=== PATIENT | male | born 1980 | race Caucasian/White ===

== ENCOUNTER 2016-09-02 19:16 | Emergency (ER) | payer OTHER ==
[2016-09-02] MEDS ORDERED: NORCO 5/325 MG PO ONE (19:31)
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
[2016-09-02] MEDS ORDERED: NORCO 5/325 MG ONE (19:42)
[2016-09-02 22:23] VITALS: BP 110/68; PULSE 62; O2SAT 98
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
== END 2016-09-02 22:22 | disposition home or self-care (01) ==
LOC: ED 19:16
DX: S50.02XA Contusion of left elbow, initial encounter (principal); S70.02XA Contusion of left hip, initial encounter; S16.1XXA Strain of muscle, fascia and tendon at neck level, initial encounter; F32.9 Major depressive disorder, single episode, unspecified; F20.9 Schizophrenia, unspecified; V09.20XA Pedestrian injured in traffic accident involving unspecified motor vehicles, initial encounter
CPT/HCPCS: 72125; 72170; 73080; 73552; 87070; 87430; 99282; L0120

== ENCOUNTER 2017-05-09 17:10 | Emergency (ER) | payer OTHER ==
[2017-05-09] MEDS ORDERED: Sodium Chloride 0.9% 1000 ML 1,000 ML IV STA ×2 (17:28→19:21)
[2017-05-09] MEDS ORDERED: BABY ASPIRIN 81 MG CHEW PO ONE (17:28)
--- NOTE | 2017-05-09 17:35 | ERPHSYRPT ---
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 has been drinking well today. Triage Nursing Assessment: pt arrrived per pov, alert, resp slightly labored, skin w/d. pink. no edema, alert and oriented Physician History: This is a 36-year-old white male with history of schizophrenia and kidney stones. He arrives with complaint of a sudden onset of feeling dizzy headache nausea and anterior chest pain while working outside with temperature is 90 outside. Patient states that he was out mowing when this began he does state he feels short of breath. Pain is described as a tightness. Past medical history includes schizophrenia, kidney stones. Past surgical history includes kidney stones. Social history positive tobacco use. Timing/Duration: today (30 minutes prior to arrival) Activities at Onset: other (mowing outside in hot day) Quality: tightness Location: substernal Chest Pain Radiation: no radiation Severity of Pain-Max: moderate Severity of Pain-Current: moderate Modifying Factors: Improves With: nothing Associated Symptoms: nausea, headache, dizziness, No vomiting, No palpitations, No heartburn, No abdominal pain, No cough, No hurts to breathe, No diaphoresis, No chills, No fever, No fatigue, No weakness, No swelling/lump in chest, No syncope, No rash, No edema, No back pain Prior Chest Pain/Cardiac Workup: no prior chest pain Nitro Today/Relief: no nitro taken today Aspirin Treatment Today: no aspirin today Allergies/Adverse Reactions: No Known Drug Allergies Allergy (Verified 05/09/17 17:19) Home Medications: No Reportable Medications [No Reported Medications] 05/09/17 [History] Hx Tetanus, Diphtheria Vaccination/Date Given: No Hx Influenza Vaccination/Date Given: No Hx Pneumococcal Vaccination/Date Given: No Immunizations Up to Date: Yes - Review of Systems Constitutional: No Fever, No Chills Eyes: No Symptoms Ears, Nose, & Throat: No Symptoms Respiratory: Dyspnea, No Cough Cardiac: Chest Pain, No Edema, No Palpitations, No Syncope, No Orthopnea Abdominal/Gastrointestinal: Nausea, No Abdominal Pain, No Vomiting, No Diarrhea , No Constipation, No Hematemesis, No Hematochezia, No Melena, No Dysphagia, No Appetite Changes Genitourinary Symptoms: No Dysuria Musculoskeletal: No Back Pain, No Neck Pain Skin: No Rash Neurological: Dizziness, Headache, No Focal Weakness, No Gait Changes, No Irritability, No Lethargy, No Paralysis, No Parasthesia, No Seizure, No Sensory Changes, No Speech Changes, No Tics, No Tremors, No Vertigo Psychological: No Symptoms Endocrine: No Symptoms All Other Systems: Reviewed and Negative - Past Medical History Pertinent Past Medical History: No Neurological History: No Pertinent History ENT History: No Pertinent History Cardiac History: No Pertinent History Respiratory History: No Pertinent History Endocrine Medical History: No Pertinent History Musculoskeletal History: No Pertinent History GI Medical History: No Pertinent History History: No Pertinent History Psycho-Social History: Depression, Other Male Reproductive Disorders: No Pertinent History Other Medical History: KIDNEY STONE. SCITZOPHRANIA - Past Surgical History Past Surgical History: Yes Neuro Surgical History: No Pertinent History Cardiac: No Pertinent History Respiratory: No Pertinent History Gastrointestinal: No Pertinent History Genitourinary: No Pertinent History Musculoskeletal: No Pertinent History Male Surgical History: No Pertinent History Other Surgical History: kidney stone removal - Social History Smoking Status: Current every day smoker How long have you smoked: 15 YEARS Exposure to second hand smoke: Yes Drug Use: none Patient Lives Alone: No - Nursing Vital Signs Nursing Vital Signs: Initial Vital Signs Temperature 98.6 F 05/09/17 17:11 Pulse Rate 87 05/09/17 17:11 Respiratory Rate 16 05/09/17 17:11 Blood Pressure 144/80 05/09/17 17:11 O2 Sat by Pulse Oximetry 99 05/09/17 17:11 Pain Scale Pain Intensity 0 - Physical Exam General Appearance: mild distress Eye Exam: PERRL/EOMI, eyes nml inspection Ears, Nose, Throat Exam: normal ENT inspection, moist mucous membranes Neck Exam: normal inspection, non-tender, supple, full range of motion Respiratory Exam: normal breath sounds, lungs clear, No respiratory distress Cardiovascular Exam: regular rate/rhythm, normal heart sounds Gastrointestinal/Abdomen Exam: soft, No tenderness, No mass Back Exam: normal inspection, No CVA tenderness, No vertebral tenderness Extremity Exam: normal inspection, normal range of motion Neurologic Exam: alert, oriented x 3, cooperative, normal mood/affect, sensation nml, No motor deficits Skin Exam: normal color, warm, dry SpO2 Interpretation: normal (99%) SpO2: 99 Oxygen Delivery: Room Air - Course Nursing assessment & vital signs reviewed: Yes EKG Interpreted by Me: RATE (64 bp0m), Sinus Rhythm, Right Hildreth Deviation, Other (ekg:sinus rhythm, 64 bpm, right axis deviation, T wave inversion in leads 1 and avl ) - Radiology Exams Chest X-ray Interpretation: Interpreted by me, No Pneumonia, No Pneumothorax, Other ( no acute disease process noted) Ordered Tests: Active Orders 24 hr Category Date Time Status Opera Singer STAT Care 05/09/17 17:28 Active EKG-ER Only STAT Care 05/09/17 17:28 Active IV Insertion STAT Care 05/09/17 17:28 Active CHEST 1 VIEW (PORTABLE) Stat Exams 05/09/17 17:28 Taken CBC W DIFF Stat Lab 05/09/17 17:45 Completed CMP Stat Lab 05/09/17 17:45 Completed TROPONIN Q3H Lab 05/09/17 17:45 Completed TROPONIN Q3H Lab 05/09/17 20:09 Received TROPONIN Q3H Lab 05/09/17 23:30 Stop Req Medication Summary Discontinued Medications Generic Name Dose Route Start Last Admin Trade Name Mckenzie PRN Reason Stop Dose Admin Aspirin 324 mg 05/09/17 17:28 05/09/17 17:41 Baby Aspirin 81 Mg Chew PO 05/09/17 17:29 324 mg STAT ONE Administration Aspirin Confirm 05/09/17 17:36 Baby Aspirin 81 Mg Chew Administered 05/09/17 17:37 Dose 324 mg .ROUTE .STK-MED ONE Sodium Chloride 1,000 mls @ 999 mls/hr 05/09/17 17:28 05/09/17 17:41 Sodium Chloride 0.9% 1000 Ml IV 05/09/17 18:28 999 mls/hr .Q1H1M STA Administration Sodium Chloride Confirm 05/09/17 17:36 Sodium Chloride 0.9% 1000 Ml Administered 05/09/17 17:37 Dose 1,000 mls @ ud .ROUTE .STK-MED ONE Sodium Chloride Confirm 05/09/17 19:16 Sodium Chloride 0.9% 1000 Ml Administered 05/09/17 19:17 Dose 1,000 mls @ ud .ROUTE .STK-MED ONE Sodium Chloride 1,000 mls @ 999 mls/hr 05/09/17 19:21 05/09/17 19:22 Sodium Chloride 0.9% 1000 Ml IV 05/09/17 20:21 999 mls/hr .Q1H1M STA Administration Potassium Bicarbonate 50 meq 05/09/17 19:37 05/09/17 19:45 K-Lyte 25 Meq PO 05/09/17 19:38 50 meq STAT ONE Administration Potassium Bicarbonate Confirm 05/09/17 19:41 K-Lyte 25 Meq Administered 05/09/17 19:42 Dose 50 meq .ROUTE .STK-MED ONE Lab/Rad Data: Laboratory Result Diagrams 05/09/17 17:45 05/09/17 17:45 Laboratory Results 05/09/17 05/09/17 05/09/17 Range/Units 17:45 17:45 17:45 WBC 12.1 H (4.0-10.5) K/mm3 RBC 5.42 (4.1-5.6) M/mm3 Hgb 16.7 (12.5-18.0) gm/dl Hct 49.9 (42-50) % MCV 92.1 (78-100) fl MCH 30.8 (26-32) pg MCHC 33.5 (32-36) g/dl RDW 13.2 (11.5-14.0) % Plt Count 284 (150-450) K/mm3 MPV 10.0 H (6-9.5) fl Gran % 65.0 (36.0-66.0) % Lymphocytes % 26.4 (24.0-44.0) % Monocytes % 8.0 (0.0-12.0) % Eosinophils % 0.4 (0.00-5.0) % Basophils % 0.2 (0.0-0.4) % Basophils # 0.03 (0-0.4) Sodium 146 H (136-145) mEq/L Potassium 3.4 L (3.5-5.1) mEq/L Chloride 106 (98-107) mEq/L Carbon Dioxide 26.4 (21-32) mEq/L Anion Gap 16.6 H (5-15) MEQ/L BUN 10 (9-20) mg/dL Creatinine 1.04 (0.55-1.30) mg/dl Estimated GFR > 60 ML/MIN Glucose 91 (70-110) MG/DL Calcium 10.0 (8.5-10.1) mg/dL Total Bilirubin 0.40 (0.2-1.0) mg/dL AST 14 L (15-37) U/L ALT 27 (12-78) U/L Alkaline Phosphatase 84 (46-116) U/L Troponin I < 0.017 (0.000-0.056) ng/ml Serum Total Protein 8.1 (6.4-8.2) gm/dL Albumin 4.5 (3.4-5.0) g/dL - Progress Progress: improved Air Movement: fair Progress Note: 05/09/17 18:30 36-year-old white male arrives with complaint of sudden onset of chest pain anteriorly shortness breath nausea headache. Which occurred while mowing outside(it is over 90 outside) approximately 30 minutes prior to arrival. Patient does have an EKG which shows sinus rhythm 64 bpm there are inverted T waves in leads 1 and aVL. Patient's troponin is within normal limits patient received 1 L of normal saline iv and aspirin 324 mg orally . He is not feeling markedly better he has no more chest pain Will plan on repeat troponin. . 05/09/17 19:07 Patient is doing well awaiting repeat troponin case will be turned over to Dr. Arango due to shift change. The patient's case has been discussed with Dr. Arango. - Departure Clinical Impression: Heat exhaustion due to salt depletion, initial encounter, Hypokalemia due to inadequate potassium intake Condition: Stable Referrals: CYNDI HAM [Primary Care Provider] - Instructions: Heat Exhaustion and Heat Stroke Additional Instructions: Please follow the instructions given to you. Please take your medication as prescribed if given. If symptoms recur or get worse, come back to the emergency room if you cannot reach your primary care physician, or call your primary care physician for an appointment. Again if your symptoms get worse, come back to the emergency room. Thanks for visiting emergency room, and let us take care of you. <GRADY ARANGO - Last Filed: 05/09/17 20:33> - Progress Air Movement: good Progress Note: 05/09/17 19:38 Patient is doing much better. Denies any chest pain. Drinking water without any difficulty. One more extra liter of IV fluid given. We will order a troponin at 745. If it is negative. Plan to discharge him home. Counseled pt/family regarding: lab results, diagnosis, need for follow-up, rad results - Departure Time of Disposition: 20:33 Departure Disposition: Home Critical Care Time: Yes Critical Care Time(excluding separately billable procedures): 30-74 minutes
[2017-05-09] MEDS ORDERED: BABY ASPIRIN 81 MG CHEW ONE (17:36)
[2017-05-09] MEDS ORDERED: Sodium Chloride 0.9% 1000 ML 1,000 ML ONE ×2 (17:36→19:16)
[2017-05-09 17:59] LABS: BASOPHIL % 0.2 % (0.0-0.4); Eosinophil % 0.4 % (0.00-5.0); Lymphocytes % 26.4 % (24.0-44.0); Mean Cell Volume 92.1 fl (78-100); Mean Corpuscular Hemoglobin 30.8 pg (26-32); Platelet Count 284 K/mm3 (150-450); Red Blood Count 5.42 M/mm3 (4.1-5.6); Red Cell Distribution Width 13.2 % (11.5-14.0); White Blood Count 12.1 K/mm3 (4.0-10.5)
[2017-05-09 18:22] LABS: ALBUMIN 4.5 g/dL (3.4-5.0); ALKALINE PHOSPHATASE 84 U/L (46-116); ANION GAP 16.6 MEQ/L (5-15); BLOOD UREA NITROGEN 10 mg/dL (9-20); CHLORIDE 106 mEq/L (98-107); Carbon Dioxide 26.4 mEq/L (21-32); Glucose 91 MG/DL (70-110); Potassium 3.4 mEq/L (3.5-5.1); SGOT/AST 14 U/L (15-37); SGPT/ALT 27 U/L (12-78); SODIUM 146 mEq/L (136-145); Total Protein 8.1 gm/dL (6.4-8.2)
[2017-05-09] MEDS ORDERED: K-LYTE 25 MEQ PO ONE (19:37)
[2017-05-09] MEDS ORDERED: K-LYTE 25 MEQ ONE (19:41)
[2017-05-09 20:47] VITALS: BP 137/85; PULSE 62; O2SAT 96
--- NOTE | 2017-05-10 08:18 | XRAY ---
Indication: Chest and left arm pain. Comparison: None Portable chest demonstrates normal heart, lungs, and bony thorax.
== END 2017-05-09 20:50 | disposition home or self-care (01) ==
LOC: ED 17:10
DX: T67.4XXA Heat exhaustion due to salt depletion, initial encounter (principal); E87.6 Hypokalemia; R07.89 Other chest pain; R06.02 Shortness of breath; R11.2 Nausea with vomiting, unspecified; R51 Headache
CPT/HCPCS: 36000; 36415; 71010; 80053; 84484; 85025; 93005; 93041; 99284; A9270-GY

== ENCOUNTER 2018-09-24 08:59 | Emergency (ER) | payer OTHER ==
[2018-09-24 09:10] VITALS: BP 150/96; PULSE 102; O2SAT 98
[2018-09-24] MEDS ORDERED: TORAdol 30 mg Injection IM ONE (09:21)
--- NOTE | 2018-09-24 09:28 | ERPHSYRPT ---
- History of Present Illness Time Seen by Provider: 09/24/18 09:16 Source: patient Exam Limitations: no limitations Patient Subjective Stated Complaint: PT STATES "FRIDAY I WOKE UP AND IT HURT REAL BAD RIGHT BETWEEN MY SHOULDER BLADES AND IT COMES DOWN MY RIGHT ARM. I DON' T KNOW WHAT I DID" Triage Nursing Assessment: PINK/WARM/DRY, RESP EASY, A&OX4, STEADY GAIT, NO DEFORMITY NOTED. HAND RN SURGICAL STRONG/EQUAL AYALA Physician History: 37-year-old white male arrives with complaint of pain in his right base of his neck posteriorly radiating to the right arm symptoms since Friday 3 days ago. He states the pain is sharp severe worse with movement. He states he woke up with the above-noted pain. Patient states he saw Lien Berger she gave him oral steroids and a muscle relaxer but he states pain continues. He has not had any fevers no nausea no vomiting. Past medical history includes depression, kidney stones, schizophrenia, anxiety , depression. Past surgical history includes kidney stones Social history positive for tobacco use occasional alcohol use denies illicit drug use. Timing/Duration: day(s) (3 days) Severity: moderate Modifying Factors: Improves With: medication (patient states he is on oral steroids and muscle relaxants for 2 days), movement Associated Symptoms: No nausea, No vomiting, No abdominal pain, No shortness of breath, No heartburn, No diaphoresis, No cough, No chills, No chest pain, No fever, No headaches, No loss of appetite, No malaise, No syncope, No seizure, No weakness Allergies/Adverse Reactions: No Known Drug Allergies Allergy (Verified 05/09/17 17:19) Hx Tetanus, Diphtheria Vaccination/Date Given: Yes Hx Influenza Vaccination/Date Given: No Hx Pneumococcal Vaccination/Date Given: No Immunizations Up to Date: Yes - Review of Systems Constitutional: No Fever, No Chills Eyes: No Symptoms Ears, Nose, & Throat: No Symptoms Respiratory: No Cough, No Dyspnea Cardiac: No Chest Pain, No Edema, No Syncope Abdominal/Gastrointestinal: No Abdominal Pain, No Nausea, No Vomiting, No Diarrhea Genitourinary Symptoms: No Dysuria Musculoskeletal: Arthralgias, Neck Pain (pain base of neck posteriorly radiating to right arm 2 days), No Back Pain, No Deformity, No Fall, No Injury , No Joint Redness, No Joint Pain, No Joint Swelling, No Myalgias Skin: No Rash Neurological: No Dizziness, No Focal Weakness, No Sensory Changes Psychological: No Symptoms Endocrine: No Symptoms All Other Systems: Reviewed and Negative - Past Medical History Pertinent Past Medical History: No Neurological History: No Pertinent History ENT History: No Pertinent History Cardiac History: No Pertinent History Respiratory History: No Pertinent History Endocrine Medical History: No Pertinent History Musculoskeletal History: Arthritis GI Medical History: No Pertinent History History: No Pertinent History Psycho-Social History: Depression, Other Male Reproductive Disorders: No Pertinent History Other Medical History: KIDNEY STONE. SCHIZOPHRENIA - Past Surgical History Past Surgical History: Yes Neuro Surgical History: No Pertinent History Cardiac: No Pertinent History Respiratory: No Pertinent History Gastrointestinal: No Pertinent History Genitourinary: No Pertinent History Musculoskeletal: No Pertinent History Male Surgical History: No Pertinent History Other Surgical History: LITHOTRIPSY - Social History Smoking Status: Current every day smoker How long have you smoked: 17 YEARS Exposure to second hand smoke: Yes Drug Use: none Patient Lives Alone: Yes - Nursing Vital Signs Nursing Vital Signs: Initial Vital Signs Temperature 98.2 F 09/24/18 09:02 Pulse Rate 102 H 09/24/18 09:02 Respiratory Rate 14 09/24/18 09:02 Blood Pressure 150/96 09/24/18 09:02 O2 Sat by Pulse Oximetry 98 09/24/18 09:02 Pain Scale Pain Intensity [] 10 Pain Intensity 7 - Physical Exam General Appearance: mild distress Eye Exam: PERRL/EOMI, eyes nml inspection Ears, Nose, Throat Exam: normal ENT inspection, TMs normal, pharynx normal, moist mucous membranes Neck Exam: full range of motion, other (patient with pain base of neck posteriorly with palpation moving neck spontaneously without distress) Respiratory Exam: No normal breath sounds Cardiovascular Exam: regular rate/rhythm, capillary refill <2 sec Gastrointestinal/Abdomen Exam: soft, normal bowel sounds, No tenderness, No mass Back Exam: normal inspection, normal range of motion, No CVA tenderness, No vertebral tenderness Extremity Exam: normal inspection (this and attic. When I was), normal range of motion, pelvis stable Neurologic Exam: alert, oriented x 3, cooperative, child development consultant II-XII nml as tested, normal mood/affect, nml cerebellar function, nml station & gait, sensation nml, No motor deficits Skin Exam: normal color, warm, dry, No rash Lymphatic Exam: No adenopathy SpO2 Interpretation: normal (98%) SpO2: 98 - Course Nursing assessment & vital signs reviewed: Yes - Radiology Exams C-Spine X-ray Interpretation: Discussed w/ radiologist (x-ray cervical spine: Impression : Unchanged three-view of the cervical spine demonstrating minimal C5-C7 endplate spurring, and minimal C5-C6 disc space narrowing. No new or acute findings..) Ordered Tests: Active Orders 24 hr Category Date Time Status CERVICAL SPINE (2 OR 3 VIEW) Stat Exams 09/24/18 09:21 Completed Medication Summary Discontinued Medications Generic Name Dose Route Start Last Admin Trade Name Mckenzie PRN Reason Stop Dose Admin Ketorolac Tromethamine 60 mg 09/24/18 09:21 09/24/18 09:32 Toradol 30 Mg Injection IM 09/24/18 09:22 60 mg STAT ONE Administration Ketorolac Tromethamine Confirm 09/24/18 09:30 Toradol 30 Mg Injection Administered 09/24/18 09:31 Dose 60 mg .ROUTE [facility] - Progress Progress: improved Progress Note: 09/24/18 09:47 X-ray of the patient's cervical spine is unchanged from September 04, 2017 demonstrating cervical lordotic straightening, minimal C5-C7 endplate spurring, and minimal C5-C6 disc space narrowing. There are no new or acute findings. Patient has full range of motion to his upper extremities sensation intact upper extremities. Will go ahead and have patient continue this oral steroids as well as muscle relaxers prescribed by Lien Berger. Will go ahead and write for a limited amount of [place] for the patient's pain. He states he does not need a work slip. He denies any history of substance abuse or narcotic dependency. Inspect has been queried no recent narcotic prescriptions. - Departure Time of Disposition: 09:49 Departure Disposition: Home Clinical Impression: Neck pain Cervical strain Qualifiers: Encounter type: initial encounter Qualified Code(s): S16.1XXA - Strain of muscle, fascia and tendon at neck level, initial encounter Condition: Fair Critical Care Time: No Referrals: CYNDI BERGER [Primary Care Provider] - Additional Instructions: Return home. Continue muscle relaxers and oral steroids as prescribed by Lien Berger. [place] 5/325 one orally every 4 hours as needed for pain. Follow-up with your family doctor if symptoms are worse, no better in 48 hours, or persist longer than one week. Return for acute distress or for severe symptoms. Prescriptions: Hydrocodone/APAP 5-325 Tab^^^ [[place] 5-325 Tablet^^^] 1 tab PO Q4HPRN PRN #10 tablet MDD 6 PRN Reason: Pain
[2018-09-24] MEDS ORDERED: TORAdol 30 mg Injection ONE (09:30)
--- NOTE | 2018-09-24 09:44 | XRAY ---
Indication: Neck pain. No known injury. Comparison: September 04, 2017. 3 views of the cervical spine unchanged again demonstrating cervical lordotic straightening, minimal C5-C7 endplate spurring, and minimal C5-C6 disc space narrowing. No new/acute findings.
== END 2018-09-24 10:06 | disposition home or self-care (01) ==
LOC: ED 08:59
DX: M54.2 Cervicalgia (principal); S16.1XXA Strain of muscle, fascia and tendon at neck level, initial encounter; F32.9 Major depressive disorder, single episode, unspecified; Z87.442 Personal history of urinary calculi; F20.9 Schizophrenia, unspecified; F41.9 Anxiety disorder, unspecified
CPT/HCPCS: 72040; 96372; 99283; J1885

== ENCOUNTER 2018-12-16 22:03 | Emergency (ER) | payer OTHER ==
--- NOTE | 2018-12-16 22:21 | ERPHSYRPT ---
- History of Present Illness Time Seen by Provider: 12/16/18 22:20 Source: patient Exam Limitations: no limitations Patient Subjective Stated Complaint: fell in hole that dog had dug, pt rolled rt ankle and heard a pop. Triage Nursing Assessment: lungs clear, heart tones reg, no distress noted. Abd soft with active bs x4 quad. Rt lateral ankle is edematous. PPP. Ice pack applied to rt ankle. Physician History: 38 y/o white male tripped in a hole in the yard prior to mowing and injured right ankle. pt kept mowing but pain not improved. Method of Injury: twisted Occurred: this evening Severity of Pain-Max: moderate Severity of Pain-Current: mild Lower Extremities Pain: ankle: right Modifying Factors: Improves With: movement Associated Symptoms: popping sensation Allergies/Adverse Reactions: No Known Drug Allergies Allergy (Verified 05/09/17 17:19) Hx Tetanus, Diphtheria Vaccination/Date Given: Yes Hx Influenza Vaccination/Date Given: No Hx Pneumococcal Vaccination/Date Given: No Immunizations Up to Date: Yes - Review of Systems Constitutional: No Symptoms Eyes: No Symptoms Ears, Nose, & Throat: No Symptoms Respiratory: No Symptoms Cardiac: No Symptoms Abdominal/Gastrointestinal: No Symptoms Genitourinary Symptoms: No Symptoms Musculoskeletal: Injury (right ankle), Joint Pain (right ankle) Skin: No Symptoms Neurological: No Symptoms Psychological: No Symptoms Endocrine: No Symptoms Hematologic/Lymphatic: No Symptoms Immunological/Allergic: No Symptoms All Other Systems: Reviewed and Negative - Past Medical History Pertinent Past Medical History: No Neurological History: No Pertinent History ENT History: No Pertinent History Cardiac History: No Pertinent History Respiratory History: No Pertinent History Endocrine Medical History: No Pertinent History Musculoskeletal History: Arthritis GI Medical History: GERD History: Other Psycho-Social History: Depression, Other Male Reproductive Disorders: No Pertinent History Other Medical History: KIDNEY STONE. SCHIZOPHRENIA. spurs behind rt shoulder - Past Surgical History Past Surgical History: Yes Neuro Surgical History: No Pertinent History Cardiac: No Pertinent History Respiratory: No Pertinent History Gastrointestinal: No Pertinent History Genitourinary: No Pertinent History Musculoskeletal: No Pertinent History Male Surgical History: No Pertinent History Other Surgical History: LITHOTRIPSY - Social History Smoking Status: Current every day smoker How long have you smoked: 17 YEARS Exposure to second hand smoke: Yes Drug Use: none Patient Lives Alone: No - Nursing Vital Signs Nursing Vital Signs: Initial Vital Signs Temperature 98.6 F 12/16/18 22:22 Pulse Rate 108 H 12/16/18 22:22 Respiratory Rate 16 12/16/18 22:22 Blood Pressure 144/96 12/16/18 22:22 O2 Sat by Pulse Oximetry 98 12/16/18 22:22 Pain Scale Pain Intensity 6 - Physical Exam General Appearance: no apparent distress, alert, anxiety Eyes, Ears, Nose, Throat Exam: normal ENT inspection, moist mucous membranes Neck Exam: normal inspection, non-tender, supple, full range of motion Cardiovascular/Respiratory Exam: chest non-tender Gastrointestinal/Abdominal Exam: non-tender Back Exam: normal inspection, normal range of motion, No CVA tenderness, No vertebral tenderness Hips Exam: bilateral: non-tender, normal inspection, normal range of motion, no evidence of injury Legs Exam: bilateral leg: non-tender, normal inspection, normal range of motion , no evidence of injury Knees Exam: bilateral knee: non-tender, normal inspection, normal range of motion Ankle Exam: right ankle: limited range of motion, soft tissue tenderness, swelling, left ankle: non-tender, normal inspection, normal range of motion, no evidence of injury Foot Exam: bilateral foot: non-tender, normal inspection, normal range of motion , no evidence of injury Neuro/Tendon Exam: normal sensation, normal motor functions, normal tendon functions, responds to pain Mental Status Exam: alert, oriented x 3, cooperative Skin Exam: normal color, warm, dry SpO2 Interpretation: normal O2 Delivery: Room Air - Course Nursing assessment & vital signs reviewed: Yes Ordered Tests: Active Orders 24 hr Category Date Time Status ANKLE (3 VIEWS) Stat Exams 12/16/18 22:21 Taken - Progress Progress: unchanged, pain not gone completely, re-examined Progress Note: 12/16/18 22:56 xray right ankle-no acute fx or dislocation Counseled pt/family regarding: diagnosis, need for follow-up, rad results - Departure Departure Disposition: Home Clinical Impression: Right ankle sprain Condition: Stable Critical Care Time: No Additional Instructions: ice pack 3 times daily for 2 days. tylenol and ibuprofen for pain. follow up with primary doctor for persistent pain.
[2018-12-16 22:24] VITALS: BP 144/96; PULSE 108; O2SAT 98
[2018-12-16] MEDS ORDERED: PERCOCET TABLET 5/325MG ONE (23:05)
[2018-12-16] MEDS: PERCOCET TABLET 5/325MG PO STA (23:17)
--- NOTE | 2018-12-17 09:04 | XRAY ---
Indication: Pain following twisting injury. Comparison: None 3 views of the right ankle demonstrates tiny posterior heel spur. No other bony, articular, or soft tissue abnormalities.
== END 2018-12-16 23:22 | disposition home or self-care (01) ==
LOC: ED 22:03
DX: S93.401A Sprain of unspecified ligament of right ankle, initial encounter (principal); W17.2XXA Fall into hole, initial encounter; Y93.01 Activity, walking, marching and hiking
CPT/HCPCS: 73610; 99283; A9270-GY

== ENCOUNTER 2019-03-23 09:34 | Emergency (ER) | payer OTHER ==
[2019-03-23] MEDS ORDERED: TORAdol 30 mg Injection IV ONE (10:06)
[2019-03-23] MEDS ORDERED: Zofran 4 MG/2 ML VIAL IV ONE (10:06)
[2019-03-23] MEDS ORDERED: Sodium Chloride 0.9% 1000 ML 1,000 ML IV STA (10:06)
[2019-03-23] MEDS ORDERED: Sodium Chloride 0.9% 1000 ML 1,000 ML ONE (10:15)
[2019-03-23] MEDS ORDERED: TORAdol 30 mg Injection ONE (10:15)
[2019-03-23] MEDS ORDERED: Zofran 4 MG/2 ML VIAL ONE (10:15)
--- NOTE | 2019-03-23 10:19 | ERPHSYRPT ---
- History of Present Illness Time Seen by Provider: 03/23/19 10:11 Source: patient Exam Limitations: no limitations Patient Subjective Stated Complaint: Pt states "I am having horrible abdominal pain. It started in my right back area and now it is in my lower abdomen. It feels like another kidney stone." Triage Nursing Assessment: Pt presnted through the front and placed in room 5. Pt alert and oriented X 3, skin pwd Pt ambulates with a hunched over gait, able to speak in clear full senteneces. Physician History: I think this is a kidney stone - on the right side. Last time was 2 years ago and needed lithotripsy. I have diarrhea also, Allergies/Adverse Reactions: No Known Drug Allergies Allergy (Verified 05/09/17 17:19) Hx Tetanus, Diphtheria Vaccination/Date Given: No Hx Influenza Vaccination/Date Given: No Hx Pneumococcal Vaccination/Date Given: No Immunizations Up to Date: Yes - Past Medical History Pertinent Past Medical History: No Neurological History: No Pertinent History ENT History: No Pertinent History Cardiac History: No Pertinent History Respiratory History: No Pertinent History Endocrine Medical History: No Pertinent History Musculoskeletal History: Arthritis GI Medical History: GERD History: Other Psycho-Social History: Depression, Other Male Reproductive Disorders: No Pertinent History Other Medical History: KIDNEY STONE. SCHIZOPHRENIA. spurs behind rt shoulder - Past Surgical History Past Surgical History: Yes Neuro Surgical History: No Pertinent History Cardiac: No Pertinent History Respiratory: No Pertinent History Gastrointestinal: No Pertinent History Genitourinary: No Pertinent History Musculoskeletal: No Pertinent History Male Surgical History: No Pertinent History Other Surgical History: LITHOTRIPSY - Social History Smoking Status: Current every day smoker How long have you smoked: years Exposure to second hand smoke: Yes Drug Use: none Patient Lives Alone: No - Review of Systems Constitutional: No Symptoms Respiratory: No Symptoms Cardiac: No Symptoms Abdominal/Gastrointestinal: Nausea, Other (R flank pain moving to RLQ) All Other Systems: Reviewed and Negative - Nursing Vital Signs Nursing Vital Signs: Initial Vital Signs Temperature 98.3 F 03/23/19 09:51 Pulse Rate 52 L 03/23/19 09:51 Respiratory Rate 22 03/23/19 09:51 Blood Pressure 138/88 03/23/19 09:51 O2 Sat by Pulse Oximetry 100 03/23/19 09:51 Pain Scale Pain Intensity 4 - Physical Exam General Appearance: mild distress (Cramping pain momentarily following abdominal palpation) Eye Exam: PERRL/EOMI Ears, Nose, Throat Exam: normal ENT inspection Respiratory Exam: normal breath sounds, chest tenderness, lungs clear Cardiovascular Exam: regular rate/rhythm, normal heart sounds, normal peripheral pulses Gastrointestinal/Abdomen Exam: soft, normal bowel sounds, No tenderness (none noted with palpation) Extremity Exam: normal inspection Neurologic Exam: alert, oriented x 3, cooperative, normal mood/affect SpO2 Interpretation: normal SpO2: 100 O2 Delivery: Room Air - Course Nursing assessment & vital signs reviewed: Yes Ordered Tests: Active Orders 24 hr Category Date Time Status CBC W DIFF Stat Lab 03/23/19 10:25 Completed CMP Stat Lab 03/23/19 10:25 Completed UA W/MICROSCOPY [Urinalysis with Microscopy] Stat Lab 03/23/19 11:02 Ordered UA W/RFX UR CULTURE Stat Lab 03/23/19 10:25 Completed Medication Summary Discontinued Medications Generic Name Dose Route Start Last Admin Trade Name Freq PRN Reason Stop Dose Admin Sodium Chloride 1,000 mls @ 999 mls/hr 03/23/19 10:06 03/23/19 11:56 Sodium Chloride 0.9% 1000 Ml IV 03/23/19 11:06 Infused .Q1H1M STA Infusion Sodium Chloride Confirm 03/23/19 10:15 Sodium Chloride 0.9% 1000 Ml Administered 03/23/19 10:16 Dose 1,000 mls @ ud .ROUTE .STK-MED ONE Ketorolac Tromethamine 30 mg 03/23/19 10:06 03/23/19 10:16 Toradol 30 Mg Injection IV 03/23/19 10:07 30 mg STAT ONE Administration Ketorolac Tromethamine Confirm 03/23/19 10:15 Toradol 30 Mg Injection Administered 03/23/19 10:16 Dose 30 mg .ROUTE .STK-MED ONE Ondansetron HCl 4 mg 03/23/19 10:06 03/23/19 10:16 Zofran 4 Mg/2 Ml Vial IV 03/23/19 10:07 4 mg STAT ONE Administration Ondansetron HCl Confirm 03/23/19 10:15 Zofran 4 Mg/2 Ml Vial Administered 03/23/19 10:16 Dose 4 mg .ROUTE .STK-MED ONE Lab/Rad Data: Laboratory Result Diagrams 03/23/19 10:25 03/23/19 10:25 Laboratory Results 03/23/19 03/23/19 03/23/19 Range/Units 10:25 10:25 10:25 WBC 8.2 (4.0-10.5) K/mm3 RBC 5.04 (4.1-5.6) M/mm3 Hgb 15.8 (12.5-18.0) gm/dl Hct 47.5 (42-50) % MCV 94.2 (78-100) fl MCH 31.3 (26-32) pg MCHC 33.3 (32-36) g/dl RDW 13.2 (11.5-14.0) % Plt Count 237 (150-450) K/mm3 MPV 9.8 H (6-9.5) fl Gran % 59.3 (36.0-66.0) % Eos # (Auto) 0.05 (0-0.5) Absolute Lymphs (auto) 1.84 (1.0-4.6) Absolute Monos (auto) 1.42 H (0.0-1.3) Lymphocytes % 22.4 L (24.0-44.0) % Monocytes % 17.3 H (0.0-12.0) % Eosinophils % 0.6 (0.00-5.0) % Basophils % 0.4 (0.0-0.4) % Absolute Granulocytes 4.86 (1.4-6.9) Basophils # 0.03 (0-0.4) Sodium 143 (137-145) mmol/L Potassium 3.6 (3.5-5.1) mmol/L Chloride 106 (98-107) mmol/L Carbon Dioxide 27 (22-30) mmol/L Anion Gap 13.2 (5-15) MEQ/L BUN 8 L (9-20) mg/dL Creatinine 0.81 (0.66-1.25) mg/dL Estimated GFR > 60.0 ML/MIN Glucose 105 (74-106) mg/dL Calcium 9.3 (8.4-10.2) mg/dL Total Bilirubin 0.30 (0.2-1.3) mg/dL AST 21 (17-59) U/L ALT 19 (0-50) U/L Alkaline Phosphatase 70 (38-126) U/L Serum Total Protein 7.9 (6.3-8.2) g/dL Albumin 4.5 (3.5-5.0) g/dL Urine Color YELLOW (YELLOW) Urine Appearance CLEAR (CLEAR) Urine pH 6.0 (5-6) Ur Specific [place] 1.017 (1.005-1.025) Urine Protein NEGATIVE (Negative) Urine Ketones NEGATIVE (NEGATIVE) Urine Blood NEGATIVE (0-5) [place] Urine Nitrite NEGATIVE (NEGATIVE) Urine Bilirubin NEGATIVE (NEGATIVE) Urine Urobilinogen NEGATIVE (0-1) mg/dL Ur Leukocyte Esterase NEGATIVE (NEGATIVE) Urine WBC (Auto) 0-2 (0-5) /HPF Urine RBC (Auto) 0-2 (0-2) /HPF U Epithel Cells (Auto) NONE (FEW) /HPF Urine Bacteria (Auto) NONE (NEGATIVE) /HPF Urine Mucus (Auto) MODERATE (NEGATIVE) /HPF Urine Culture Reflexed NO (NO) Urine Glucose NEGATIVE (NEGATIVE) mg/dL - Progress Progress: improved Progress Note: 03/23/19 12:20 No pain/nausea since IV and zofran and my initial exam. Educated at length re UA not suggestve of stone movement - blood work not suggestive of an acute bacterial infectious process. Believe safe to go home; RX for pain and nausez - can fill if needed. If GI sx only (has diarrhea) no further TX indicated except keep well hydrated - same as for presumptive stone picture. - Departure Departure Disposition: Home Clinical Impression: Gastroenteritis Condition: Stable Critical Care Time: No Referrals: DOCTOR,NO FAMILY [Primary Care Provider] - Additional Instructions: Keep well hydrated - same plan if a stone is causing the pain or is Gastroenteritis (diarrhea) is causing the abdominal pain. Fill RX if needed for pain and nausea control. Follow up with primary care as needed. Prescriptions: Hydrocodone Bit/Acetaminophen [[place] 7.5-325 Tablet] 1 each PO Q6H PRN PRN #14 tablet PRN Reason: Mild To Moderate Pain Ondansetron ODT 4 MG [Zofran Odt 4 mg] 4 mg PO Q6H PRN PRN #10 tab.rapdis PRN Reason: Nausea/Vomiting
[2019-03-23 10:36] LABS: BASOPHIL % 0.4 % (0.0-0.4); Basophil (Absolute #) 0.03 (0-0.4); Eosinophil % 0.6 % (0.00-5.0); Eosinophil (Absolute #) 0.05 (0-0.5); Granulocyte Absolute (ANC) 4.86 (1.4-6.9); Granulocytes % 59.3 % (36.0-66.0); Hematocrit 47.5 % (42-50); Hemoglobin 15.8 gm/dl (12.5-18.0); Lymphocyte (Absolute #) 1.84 (1.0-4.6); Lymphocytes % 22.4 % (24.0-44.0); Mean Cell Volume 94.2 fl (78-100); Mean Corpuscular Hemoglobin 31.3 pg (26-32); Mean Corpuscular Hgb Concent. 33.3 g/dl (32-36); Mean Platelet Volume 9.8 fl (6-9.5); Monocyte (Absolute #) 1.42 (0.0-1.3); Monocytes % 17.3 % (0.0-12.0); Platelet Count 237 K/mm3 (150-450); Red Blood Count 5.04 M/mm3 (4.1-5.6); Red Cell Distribution Width 13.2 % (11.5-14.0); White Blood Count 8.2 K/mm3 (4.0-10.5)
[2019-03-23 10:39] LABS: Appearance CLEAR (CLEAR); Bilirubin NEGATIVE (NEGATIVE); Blood NEGATIVE Ery/ul (0-5); Glucose NEGATIVE (NEGATIVE); Ketones NEGATIVE (NEGATIVE); Leukocyte Esterase NEGATIVE (NEGATIVE); Mucus MODERATE /HPF (NEGATIVE); Nitrite NEGATIVE (NEGATIVE); Protein,Urine Dip NEGATIVE (Negative); RBC 0-2 /HPF (0-2); Specific Gravity 1.017 (1.005-1.025); Urobilinogen NEGATIVE mg/dL (0-1); WBC 0-2 /HPF (0-5)
[2019-03-23 10:50] LABS: ALBUMIN 4.5 g/dL (3.5-5.0); ALKALINE PHOSPHATASE 70 U/L (38-126); ANION GAP 13.2 MEQ/L (5-15); BLOOD UREA NITROGEN 8 mg/dL (9-20); CHLORIDE 106 mmol/L (98-107); Calcium 9.3 mg/dL (8.4-10.2); Carbon Dioxide 27 mmol/L (22-30); Creatinine 1 0.81 mg/dL (0.66-1.25); Glucose 105 mg/dL (74-106); Potassium 3.6 mmol/L (3.5-5.1); SGOT/AST 21 U/L (17-59); SGPT/ALT 19 U/L (0-50); SODIUM 143 mmol/L (137-145); Total Protein 7.9 g/dL (6.3-8.2)
[2019-03-23 12:21] VITALS: BP 113/69; PULSE 49
[2019-03-23 12:26] VITALS: O2SAT 100
== END 2019-03-23 12:45 | disposition home or self-care (01) ==
LOC: ED 09:34
DX: K52.9 Noninfective gastroenteritis and colitis, unspecified (principal)
CPT/HCPCS: 36000; 36415; 80053; 81001; 85025; 96360; 96374; 96375; 99284; J1885; J2405

== ENCOUNTER 2023-01-11 22:29 | Emergency (ER) | payer OTHER ==
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
[2023-01-11] MEDS ORDERED: Sodium Chloride 0.9% 1000 ML 1,000 ML ONE (22:42)
[2023-01-11] MEDS ORDERED: Sodium Chloride 0.9% 1000 ML 1,000 ML IV SCH (22:45)
[2023-01-11 22:58] LABS: BASOPHIL % 0.7 % (0.0-0.4); Basophil (Absolute #) 0.06 x10^3/uL (0-0.4); Eosinophil % 1.3 % (0.00-5.0); Eosinophil (Absolute #) 0.11 x10^3/uL (0-0.5); Hematocrit 45.5 % (42-50); IMMATURE GRAN # 0.03 x10^3u/L (0.00-0.03); IMMATURE GRAN % 0.4 % (0.00-0.4); Lymphocytes % 37.9 % (24.0-44.0); Mean Cell Volume 94.8 fL (78-100); Mean Corpuscular Hemoglobin 31.3 pg (26-32); Mean Platelet Volume 8.9 fL (7.5-11.0); Monocyte (Absolute #) 0.75 x10^3/uL (0.0-1.3); Monocytes % 8.9 % (0.0-12.0); Neutrophil % 50.8 % (36.0-66.0); Platelet Count 256 x10^3/uL (150-450); Red Cell Distribution Width 12.8 % (11.5-14.0); White Blood Count 8.5 x10^3/uL (4.0-10.5)
[2023-01-11 23:12] LABS: ALBUMIN 4.1 g/dL (3.5-5.0); ALKALINE PHOSPHATASE 84 U/L (38-126); ANION GAP 12.6 MEQ/L (5-15); BLOOD UREA NITROGEN 13 mg/dL (9-20); CHLORIDE 104 mmol/L (98-107); Calcium 9.1 mg/dL (8.4-10.2); Carbon Dioxide 29 mmol/L (22-30); Creatinine 1 1.06 mg/dL (0.66-1.25); EST GLOMERULAR FILTRATION RATE > 60.0 ML/MIN; ETHYL ALCOHOL < 10 mg/dL (0-10); Glucose 145 mg/dL (74-106); LIPASE 64 U/L (23-300); SGOT/AST 28 U/L (17-59); SGPT/ALT 27 U/L (0-50); SODIUM 142 mmol/L (137-145)
--- NOTE | 2023-01-11 23:14 | XRAY ---
CLINICAL HISTORY:Stroke protocol. CVA symptoms. numbness in hands & face; COMPARISON:None; TECHNIQUES:Axial non-contrast CT scan of the brain was performed from the skull base to the high parietal region. CTDI: 53.92 mGy, DLP: 1016.25 mGy*cm; FINDINGS: No intracerebral or extra axial hematoma. No evidence of infarction in this CT. The visualized brain parenchyma shows a normal appearance. No focal parenchymal abnormalities are demonstrated. Noe-white matter differentiation is maintained. No midline shifts or deformity. Normal size and configuration of the cerebral ventricles. Normal CT appearance of the posterior fossa structures namely the cerebellar hemispheres, brainstem and cerebellar peduncles. There is a small CSF area at midline of posterior fossa, measuring 1.5 x 1.6 x 1.2 cm, suggestive of arachnoid cyst. The IACs are unremarkable. The cerebellum-pontine angles are clear. The pituitary gland, the pineal gland, the optic chiasm is unremarkable. The osseous structures in the skull base are unremarkable. No definite calvarium fractures. Scanned paranasal sinuses are clear. No abnormal contrast enhancement seen. IMPRESSION: No evident intracerebral or extra axial hematoma, and no evident infarction in this CT. Small arachnoid cyst in posterior fossa. Unremarkable non-enhanced CT study for the brain. Electronically Signed by: Kayla lEena MD. (01/11/2023 22:08:36 [employer])
[2023-01-11 23:57] LABS: Appearance Cloudy (Clear); Bacteria None Seen /HPF (None Seen); Bilirubin Negative (Negative); Blood Negative (Negative); Epithelial Cells None Seen /HPF (None Seen); Glucose, Urine Negative (Negative); Hyaline Casts NONE SEEN /LPF (0-2); Ketones Negative (Negative); Leukocyte Esterase Negative (Negative); Nitrite Negative (Negative); Ph 7.5 (4.6-8.0); Protein,Urine Dip Negative (Negative); RBC 0-2 /HPF (0-5); Specific Gravity 1.015 (1.005-1.030); Urobilinogen 0.2 mg/dL (0.2); WBC 0-2 /HPF (0-5)
[2023-01-11 23:59] LABS: ADD URINE CULTURE? NO (NO)
[2023-01-12] MEDS: BABY ASPIRIN 81 MG CHEW PO ONE ×2 (00:57→01:00)
[2023-01-12 02:33] VITALS: O2SAT 96
[2023-01-12 03:33] LABS: T4 (Thyroxine) 5.97 ug/dL (5.53-10.96); TSH, 3RD Generation 1.39 mIU/L (0.47-4.68)
[2023-01-12 04:04] VITALS: BP 127/77; PULSE 48
== END 2023-01-12 04:15 | disposition home or self-care (01) ==
LOC: ED 22:29
DX: G93.0 Cerebral cysts (principal); R07.9 Chest pain, unspecified; R20.2 Paresthesia of skin; Z72.0 Tobacco use
CPT/HCPCS: 36000; 36415; 70450; 80053; 81001; 82077; 83605; 83690; 83735; 84436; 84443; 84484; 85025; 93005; 94760; 96360; 96361; 99284; A9270-GY

== ENCOUNTER 2023-12-11 16:18 | Emergency (ER) | payer BC, OTHER ==
[2023-12-11 16:28] VITALS: TEMP 98
[2023-12-11 16:44] LABS: BASOPHIL % 0.4 % (0.0-0.4); Basophil (Absolute #) 0.04 x10^3/uL (0-0.4); Eosinophil % 0.3 % (0.00-5.0); Eosinophil (Absolute #) 0.03 x10^3/uL (0-0.5); Hematocrit 45.5 % (42-50); Hemoglobin 15.4 g/dL (12.5-18.0); IMMATURE GRAN # 0.04 x10^3u/L (0.00-0.03); IMMATURE GRAN % 0.4 % (0.00-0.4); Lymphocyte (Absolute #) 2.21 x10^3/uL (1.0-4.6); Lymphocytes % 20.1 % (24.0-44.0); Mean Cell Volume 92.9 fL (78-100); Mean Corpuscular Hemoglobin 31.4 pg (26-32); Mean Corpuscular Hgb Concent. 33.8 g/dL (32-36); Mean Platelet Volume 9.4 fL (7.5-11.0); Monocyte (Absolute #) 0.96 x10^3/uL (0.0-1.3); Monocytes % 8.7 % (0.0-12.0); Neutrophil % 70.1 % (36.0-66.0); Platelet Count 242 x10^3/uL (150-450); Red Cell Distribution Width 12.6 % (11.5-14.0)
[2023-12-11 16:53] LABS: Erythrocyte Sedimentation Rate 4 mm/hr (0-15)
[2023-12-11 16:57] LABS: ALBUMIN 4.6 g/dL (3.5-5.0); ANION GAP 11.9 MEQ/L (5-15); BILIRUBIN,TOTAL 0.6 mg/dL (0.2-1.3); Calcium 9.5 mg/dL (8.4-10.2); Creatinine 1 0.97 mg/dL (0.66-1.25); EST GLOMERULAR FILTRATION RATE 100.6 ML/MIN; MAGNESIUM 1.9 mg/dL (1.6-2.3); Potassium 3.5 mmol/L (3.5-5.1); Total Protein 7.7 g/dL (6.3-8.2)
[2023-12-11 17:07] LABS: D-DIMER QUANTITATIVE 0.27 mg/L (0.0-0.50); INR 0.99 (0.8-3.0); PROTIME 10.8 SECONDS (9.4-12.5); PTT 25.4 SECONDS (25.1-36.5)
--- NOTE | 2023-12-11 17:07 | XRAY ---
Indication: Chest pain. Comparison: May 09, 2017 Portable apical lordotic chest again demonstrates normal heart, lungs, and bony thorax.
[2023-12-11 17:31] VITALS: PULSE 63
--- NOTE | 2023-12-11 17:35 | ERPHSYRPT ---
- History of Present Illness Time Seen by Provider: 12/11/23 16:35 Historian: patient Exam Limitations: no limitations Patient Subjective Stated Complaint: C/O intermittent chest pain for a few days. Denies N/V or SOB. Triage Nursing Assessment: Patient ambulated back to ER without difficulties. He is alert and oriented. No SOB. Skin tone normal. BAILEY WNL. No edema. Physician History: Patient is a 43-year-old white male who presents with complaint of left-sided substernal chest pain for several days. The pain comes and goes and is not associated with activity he occasionally gets some nausea but no vomiting no swe ats no shortness of breath.He is concerned about a family history of pulmonary emboli. Timing/Duration: intermittent Activities at Onset: none Quality: throbbing Location: substernal Chest Pain Radiation: no radiation Severity of Pain-Max: moderate Severity of Pain-Current: none Modifying Factors: Improves With: nothing Associated Symptoms: nausea Prior Chest Pain/Cardiac Workup: no prior cardiac workup Nitro Today/Relief: no nitro taken today Aspirin Treatment Today: no aspirin today Allergies/Adverse Reactions: tramadol [From Ultram] Allergy (Intermediate, Verified 12/11/23 16:21) Hives Home Medications: Amlodipine Besylate [Norvasc] 2.5 mg PO DAILY 12/11/23 [History] Aspirin 81 gm Chew [Baby Aspirin 81 mg Chew] 81 mg PO DAILY 12/11/23 [History] Atorvastatin Calcium [Lipitor 20MG Tablet] 20 mg PO HS 12/11/23 [History] Hx Tetanus, Diphtheria Vaccination/Date Given: Yes Hx Influenza Vaccination/Date Given: No Hx Pneumococcal Vaccination/Date Given: No Immunizations Up to Date: Yes Travel Risk - International Travel Have you traveled outside of the country in past 3 weeks: No - Emerging Infectious Disease Are you exhibiting symptoms associated with any current EIDs: No - Review of Systems Constitutional: No Fever, No Chills Eyes: No Symptoms Ears, Nose, & Throat: No Symptoms Respiratory: No Cough, No Dyspnea Cardiac: Chest Pain, No Edema, No Syncope Abdominal/Gastrointestinal: No Abdominal Pain, No Nausea, No Vomiting, No Diarrhea Genitourinary Symptoms: No Dysuria Musculoskeletal: No Back Pain, No Neck Pain Skin: No Rash Neurological: No Dizziness, No Focal Weakness, No Sensory Changes Psychological: No Symptoms Endocrine: No Symptoms All Other Systems: Reviewed and Negative - Past Medical History Pertinent Past Medical History: Yes Neurological History: No Pertinent History ENT History: No Pertinent History Cardiac History: High Cholesterol, Hypertension Respiratory History: No Pertinent History, Other Endocrine Medical History: Other Musculoskeletal History: Degenerative Disk Disease GI Medical History: GERD History: Other Psycho-Social History: Depression, Other Male Reproductive Disorders: No Pertinent History Other Medical History: kidney stones - Past Surgical History Past Surgical History: Yes Neuro Surgical History: No Pertinent History Cardiac: No Pertinent History Respiratory: No Pertinent History Gastrointestinal: No Pertinent History Genitourinary: No Pertinent History Musculoskeletal: No Pertinent History Male Surgical History: No Pertinent History Other Surgical History: LITHOTRIPSY - Social History Smoking Status: Current every day smoker How long have you smoked: 30 years Exposure to second hand smoke: Yes Drug Use: marijuana Patient Lives Alone: No - Nursing Vital Signs Nursing Vital Signs: Initial Vital Signs Temperature 98 F 12/11/23 16:23 Pulse Rate 75 12/11/23 16:23 Respiratory Rate 17 12/11/23 16:23 Blood Pressure 140/104 12/11/23 16:23 O2 Sat by Pulse Oximetry 99 12/11/23 16:23 Pain Scale Pain Intensity 0 - Physical Exam General Appearance: mild distress, alert Eye Exam: PERRL/EOMI, eyes nml inspection Ears, Nose, Throat Exam: normal ENT inspection, moist mucous membranes Neck Exam: normal inspection, non-tender, supple, full range of motion Respiratory Exam: normal breath sounds, lungs clear, No respiratory distress Cardiovascular Exam: regular rate/rhythm, normal heart sounds Gastrointestinal/Abdomen Exam: soft, No tenderness, No mass Back Exam: normal inspection, No CVA tenderness, No vertebral tenderness Extremity Exam: normal inspection, normal range of motion Neurologic Exam: alert, oriented x 3, cooperative, normal mood/affect, sensation nml, No motor deficits Skin Exam: normal color, warm, dry SpO2 Interpretation: normal SpO2: 93 O2 Delivery: Room Air - Course Nursing assessment & vital signs reviewed: Yes EKG Interpreted by Me: RATE (57), Sinus Rhythm, NORMAL AXIS, NORMAL INTERVALS, NORMAL QRS, NORMAL ST-T - Radiology Exams Chest X-ray Interpretation: Reviewed by me Ordered Tests: Active Orders 24 hr Category Date Time Status EKG-ER Only STAT Care 12/11/23 16:22 Active IV Insertion STAT Care 12/11/23 16:22 Active CHEST 1 VIEW (PORTABLE) Stat Exams 12/11/23 16:23 Completed CBC W DIFF Stat Lab 12/11/23 16:41 Completed CK-Creatinine Phosphokinase Stat Lab 12/11/23 16:41 Completed CMP Stat Lab 12/11/23 16:41 Completed D-DIMER QUANTITATIVE Stat Lab 12/11/23 16:41 Completed Erythrocyte Sedimentation Rate Stat Lab 12/11/23 16:41 Completed LIPASE Stat Lab 12/11/23 16:41 Completed Lactic Acid Stat Lab 12/11/23 16:22 Completed MAGNESIUM Stat Lab 12/11/23 16:41 Completed NT PRO BNPII Stat Lab 12/11/23 16:50 Completed PROTIME WITH INR Stat Lab 12/11/23 16:41 Completed PTT Stat Lab 12/11/23 16:41 Completed TROPONIN Q4H Lab 12/11/23 16:41 Completed TROPONIN Q4H Lab 12/11/23 20:30 Ordered TROPONIN Q4H Lab 12/12/23 00:30 Ordered UA W/RFX UR CULTURE Stat Lab 12/11/23 16:23 Ordered Urine Triage Profile Stat Lab 12/11/23 16:23 Ordered Lab/Rad Data: Laboratory Result Diagrams 12/11/23 16:41 12/11/23 16:41 Laboratory Results 12/11/23 12/11/23 12/11/23 Range/Units 16:50 16:41 16:41 WBC (4.0-10.5) x10^3/uL RBC (4.1-5.6) x10^6/uL Hgb (12.5-18.0) g/dL Hct (42-50) % MCV (78-100) fL MCH (26-32) pg MCHC (32-36) g/dL RDW (11.5-14.0) % Plt Count (150-450) x10^3/uL MPV (7.5-11.0) fL Gran % (36.0-66.0) % Immature Gran % (Auto) (0.00-0.4) % Nucleat RBC Rel Count (0.00-0.1) % Eos # (Auto) (0-0.5) x10^3/uL Immature Gran # (Auto) (0.00-0.03) x10^3u/L Absolute Lymphs (auto) (1.0-4.6) x10^3/uL Absolute Monos (auto) (0.0-1.3) x10^3/uL Absolute Nucleated RBC (0.00-0.01) x10^3u/L Lymphocytes % (24.0-44.0) % Monocytes % (0.0-12.0) % Eosinophils % (0.00-5.0) % Basophils % (0.0-0.4) % Absolute Granulocytes (1.4-6.9) x10^3/uL Basophils # (0-0.4) x10^3/uL ESR (0-15) mm/hr PT 10.8 (9.4-12.5) SECONDS INR 0.99 (0.8-3.0) APTT 25.4 (25.1-36.5) SECONDS D-Dimer 0.27 (0.0-0.50) mg/L Sodium (135-145) mmol/L Potassium (3.5-5.1) mmol/L Chloride (98-107) mmol/L Carbon Dioxide (22-30) mmol/L Anion Gap (5-15) MEQ/L BUN (9-20) mg/dL Creatinine (0.66-1.25) mg/dL Estimated GFR ML/MIN Glucose (74-106) mg/dL Lactic Acid (0.4-2.0) Calcium (8.4-10.2) mg/dL Magnesium (1.6-2.3) mg/dL Total Bilirubin (0.2-1.3) mg/dL AST (17-59) U/L ALT (0-50) U/L Alkaline Phosphatase (38-126) U/L Creatine Kinase (55-170) U/L Troponin I < 0.012 (0.000-0.033) ng/mL NT-Pro-B Natriuret Pep < 20.0 (<300) pg/mL Serum Total Protein (6.3-8.2) g/dL Albumin (3.5-5.0) g/dL Lipase (23-300) U/L 12/11/23 12/11/23 12/11/23 Range/Units 16:41 16:41 16:22 WBC 11.0 H (4.0-10.5) x10^3/uL RBC 4.90 (4.1-5.6) x10^6/uL Hgb 15.4 (12.5-18.0) g/dL Hct 45.5 (42-50) % MCV 92.9 (78-100) fL MCH 31.4 (26-32) pg MCHC 33.8 (32-36) g/dL RDW 12.6 (11.5-14.0) % Plt Count 242 (150-450) x10^3/uL MPV 9.4 (7.5-11.0) fL Gran % 70.1 H (36.0-66.0) % Immature Gran % (Auto) 0.4 (0.00-0.4) % Nucleat RBC Rel Count 0.0 (0.00-0.1) % Eos # (Auto) 0.03 (0-0.5) x10^3/uL Immature Gran # (Auto) 0.04 H (0.00-0.03) x10^3u/L Absolute Lymphs (auto) 2.21 (1.0-4.6) x10^3/uL Absolute Monos (auto) 0.96 (0.0-1.3) x10^3/uL Absolute Nucleated RBC 0.00 (0.00-0.01) x10^3u/L Lymphocytes % 20.1 L (24.0-44.0) % Monocytes % 8.7 (0.0-12.0) % Eosinophils % 0.3 (0.00-5.0) % Basophils % 0.4 (0.0-0.4) % Absolute Granulocytes 7.70 H (1.4-6.9) x10^3/uL Basophils # 0.04 (0-0.4) x10^3/uL ESR 4 (0-15) mm/hr PT (9.4-12.5) SECONDS INR (0.8-3.0) APTT (25.1-36.5) SECONDS D-Dimer (0.0-0.50) mg/L Sodium 142 (135-145) mmol/L Potassium 3.5 (3.5-5.1) mmol/L Chloride 104 (98-107) mmol/L Carbon Dioxide 29 (22-30) mmol/L Anion Gap 11.9 (5-15) MEQ/L BUN 14 (9-20) mg/dL Creatinine 0.97 (0.66-1.25) mg/dL Estimated GFR 100.6 ML/MIN Glucose 114 H (74-106) mg/dL Lactic Acid 1.3 (0.4-2.0) Calcium 9.5 (8.4-10.2) mg/dL Magnesium 1.9 (1.6-2.3) mg/dL Total Bilirubin 0.60 (0.2-1.3) mg/dL AST 28 (17-59) U/L ALT 21 (0-50) U/L Alkaline Phosphatase 63 (38-126) U/L Creatine Kinase 112 (55-170) U/L Troponin I (0.000-0.033) ng/mL NT-Pro-B Natriuret Pep (<300) pg/mL Serum Total Protein 7.7 (6.3-8.2) g/dL Albumin 4.6 (3.5-5.0) g/dL Lipase 25 (23-300) U/L - Progress Progress: unchanged Air Movement: good Blood Culture(s) Obtained: No Antibiotics given: No Medical Desision Making - Diagnostic Testing Diagnostic test were ordered, analyzed, and reviewed by me: Yes Radiological Interpretation: Reviewed by me - Risk of complications Low Risk: Low risk of morbidity from additional dx testing or treatment - Departure Departure Disposition: Home Clinical Impression: Atypical chest pain Condition: Stable Critical Care Time: No Referrals: PEYTON MCDONALD [Primary Care Provider] - Follow up/PCP as directed Instructions: Chest Pain (DC) Prescriptions: Celecoxib [Celebrex] 200 mg PO BID 10 Days #20 cap
[2023-12-11 17:36] VITALS: O2SAT 93
[2023-12-11 17:41] VITALS: BP 157/84; RESP 16
[2023-12-11 17:46] LABS: ADD URINE CULTURE? NO (NO); Appearance Clear (Clear); Bacteria None Seen /HPF (None Seen); Bilirubin Negative (Negative); Blood Negative (Negative); Epithelial Cells None Seen /HPF (None Seen); Glucose, Urine Negative (Negative); Hyaline Casts NONE SEEN /LPF (0-2); Ketones Negative (Negative); Leukocyte Esterase Negative (Negative); Nitrite Negative (Negative); Protein,Urine Dip Negative (Negative); RBC 0-2 /HPF (0-5); Specific Gravity 1.015 (1.005-1.030); Urobilinogen 0.2 mg/dL (0.2); WBC 0-2 /HPF (0-5)
[2023-12-11 17:56] LABS: Amphetamine,Urine NEGATIVE (NEGATIVE); Barbiturate,Urine NEGATIVE (NEGATIVE); Benzodiazepine,Urine NEGATIVE (NEGATIVE); Cocaine,Urine NEGATIVE (NEGATIVE); Methadone,Urine NEGATIVE (NEGATIVE); Opiate,Urine NEGATIVE (NEGATIVE); PCP,Urine NEGATIVE (NEGATIVE); THC,Urine POSITIVE (NEGATIVE)
== END 2023-12-11 17:50 | disposition home or self-care (01) ==
LOC: ED 16:18
DX: R07.89 Other chest pain (principal); E78.5 Hyperlipidemia, unspecified; I10 Essential (primary) hypertension; Z79.899 Other long term (current) drug therapy; Z72.0 Tobacco use
CPT/HCPCS: 36000; 36415; 71045; 80053; 80307; 81001; 82550; 83605; 83690; 83735; 83880; 84484; 85025; 85379; 85610; 85652; 85730; 93005; 99284